=== PATIENT | female | born 1990 | race Two or more races ===

== ENCOUNTER 2024-09-20 08:36 | Outpatient (CLI) | payer OTHER | END 2024-09-20 08:54 | disposition home or self-care (01) | LOC: LAB 08:36 | PROVIDERS: ATTEND Obstetrics & Gynecology | DX: E11.9 Type 2 diabetes mellitus without complications (principal); E03.0 Congenital hypothyroidism with diffuse goiter; E78.00 Pure hypercholesterolemia, unspecified; N39.0 Urinary tract infection, site not specified; B19.10 Unspecified viral hepatitis B without hepatic coma; K76.9 Liver disease, unspecified; R63.4 Abnormal weight loss; A60.04 Herpesviral vulvovaginitis; R21 Rash and other nonspecific skin eruption; R50.9 Fever, unspecified ==

== ENCOUNTER 2024-09-23 07:46 | Outpatient (CLI) | payer OTHER | END 2024-09-23 07:49 | disposition home or self-care (01) | LOC: SONOGRAMA 07:46 | PROVIDERS: ATTEND Obstetrics & Gynecology | DX: N60.11 Diffuse cystic mastopathy of right breast (principal); N60.12 Diffuse cystic mastopathy of left breast; R10.2 Pelvic and perineal pain ==

== ENCOUNTER → 2024-10-08 | Emergency (ER) | payer OTHER ==
[~2024-10-08] VITALS: Ht 157.5 cm; Wt 77.1 kg
[~2024-10-08] MED LIST: DEXAMETHASONE SODIUM PHOSPHATE 4 MG/ML VIAL IM STA
[2024-10-08 09:25] LABS: HEMATOCRIT 38.7 % (36.0-45.00); MEAN CORPUSCULAR HEMOGLOBIN 28.9 pg (27.00-32.0); MEAN CORPUSCULAR HGB CONC 33.6 g/dl (32.0-36.0); PLATELET COUNT 237 K/uL (150-450); RED CELL DISTRIBUTION WIDTH 13.5 % (11.5-14.5)
[2024-10-08 10:04] LABS: INFLUENZA A AG NEGATIVE (NEGATIVE)
== END | disposition home or self-care (01) ==
LOC: ER 07:45
PROVIDERS: General Practice
DX: B34.9 Viral infection, unspecified (principal); Z91.018 Allergy to other foods; J45.909 Unspecified asthma, uncomplicated; D25.9 Leiomyoma of uterus, unspecified; N83.292 Other ovarian cyst, left side
CPT/HCPCS: 36415; 76856; 93005; 96372; 99284; J1100

== ENCOUNTER 2025-01-07 11:35 | Outpatient (CLI) | payer OTHER ==
[2025-01-07 12:32] LABS: URINE APPEARANCE Clear; URINE BILIRRUBIN Negative (NEGATIVE); URINE BLOOD Negative; URINE COLOR Yellow; URINE GLUCOSE Negative (NEGATIVE); URINE KETONE Trace (NEGATIVE); URINE LEUKOCYTE Negative; URINE NITRATE Negative; URINE PROTEIN Negative (NEGATIVE); URINE UROBILINOGEN 0.2 E.U./dl
[2025-01-07 12:36] LABS: URINE BACTERIA 61.1 uL (0.0-1933); URINE EPITHELIAL CELLS 8.4 uL (0.0-38.8); URINE RBC 7.1 uL (0.0-20.8); URINE WBC 2.3 uL (0.0-23.2)
[2025-01-07 12:49] LABS: BASO % 0.3 % (0.1-1.2); EOS # 0.09 (0.04-0.54); EOS % 1.5 % (0.7-7.0); LYMPH # 2.11 (1.18-3.74); LYMPH % 34.9 % (19.3-53.1); MEAN PLATELET VOLUME 11.40 fl (9.4-12.4); MONO # 0.35 (0.24-0.82); MONO % 5.8 % (4.7-12.5); NEUT # 3.47 (1.56-6.13); NEUT % 57.3 % (34.0-71.1); RED CELL DISTRIBUTION WIDTH 12.4 % (11.6-14.4)
[2025-01-07 13:08] LABS: ALT/SGPT 17.0 U/L (12-78); AST/SGOT 10.0 U/L (15-37); BILIRUBIN TOTAL 0.28 mg/dL (0.3-1.2); BUN CREA RATIO 15.0 (7.0-25.0); CHOL HDL RATIO 3.4 (0-5.0); CREATININE SERUM 0.89 mg/dL (0.55-1.02); GFR 72.6; GLOBULINA 3.7 G/DL (2.4-3.5); GLUCOSE FASTING 89.0 mg/dL (65-100); HDL 54.0 mg/dl (40-60); LDL 93.0 mg/dl (0-130); OSMOLALITY SERUM 277.0 MOSM/KG (275-295); TSH 2.79 uIU/mL (0.358-3.74); VLDL 34.0 (0-39)
[2025-01-07 13:32] LABS: URINE CAST 0.00 uL (0.0-1.40)
[2025-01-07 13:47] LABS: FOLIC ACID > 20.00 ng/ml (4.78-20)
== END 2025-01-07 11:41 | disposition home or self-care (01) ==
LOC: LAB 11:35
DX: E78.5 Hyperlipidemia, unspecified (principal); Z13.29 Encounter for screening for other suspected endocrine disorder; N39.0 Urinary tract infection, site not specified; E53.8 Deficiency of other specified B group vitamins; Z00.00 Encounter for general adult medical examination without abnormal findings; R73.9 Hyperglycemia, unspecified; D64.89 Other specified anemias